=== PATIENT | male | born 1995 | race African-American/Black ===

== ENCOUNTER 2016-09-10 20:43 | Emergency (ER) | payer SELFPAY ==
[~2016-09-10] VITALS: Ht 193 cm; Wt 94.3 kg
[2016-09-10 20:48] VITALS: BP 142/73
[2016-09-10] MEDS ORDERED: MORPHINE SULFATE 4 MG/ML DISP.SYRIN. IV/SQ PRN (21:00)
[2016-09-10] MEDS ORDERED: ONDANSETRON PF 4 MG/2 ML VIAL. IV ONE (21:30)
[2016-09-10] MEDS ORDERED: DIPHTH,PERTUSS(ACELL),TET TOX 0.5 ML DISP.SYRIN. VAX IM ONE (21:30)
[2016-09-10] MEDS ORDERED: LIDOCAINE 1% / SOD BICARB 8.4% 20 ML VIAL. IJ ONE (21:30)
[2016-09-10] MEDS ORDERED: CEFAZOLIN 2GM PREMIX 50 ML IV ONE (22:00)
[2016-09-10] MEDS ORDERED: NAPR250T2 PO (22:26)
[2016-09-10] MEDS ORDERED: CEPH-264 PO (22:26)
--- NOTE | 2016-09-10 23:44 | ED.ADGEN ---
Past Medical History Past Medical History: No Pertinent History Past Surgical History: No Surgical History Alcohol Use: Rarely Drug Use: None Adult General Chief Complaint Chief Complaint: FINGER INJURY HPI HPI Patient is a 21 year old man, with no significant past history, who presents to the emergency department with a complaint of pain in the left fifth digit. Patient states that he was playing basketball, he jumped up to hit a ball, and fell, striking his finger against the pavement. This happened about an half an hour prior to arrival in the ED. Patient states that he had previously injured that finger, and that it was "crooked and S shaped", prior to this injury. Finger is noted have an obvious deformity, patient has a laceration just proximal to the PIP joint, concerning for a possible open fracture. He states that he did not note any bone sticking out of the skin at that time. He is complaining of pain in the finger, and in the blade of the hand, denies any other injuries or complaints. He hasn't taken any medication prior to coming to the ED. He is uncertain when he last received a tetanus vaccination. Review of Systems Review of Systems Constitutional: Denies fever or chills. [] Eyes: Denies change in visual acuity. [] HENT: Denies nasal congestion or sore throat. [] Respiratory: Denies cough or shortness of breath. [] Cardiovascular: Denies chest pain or edema. [] GI: Denies abdominal pain, nausea, vomiting, bloody stools or diarrhea. [] : Denies dysuria. [] Musculoskeletal: Denies back pain, pain in the left fifth digit. Integument: Denies rash. [] Neurologic: Denies headache, focal weakness or sensory changes. [] Endocrine: Denies polyuria or polydipsia. [] Lymphatic: Denies swollen glands. [] Psychiatric: Denies depression or anxiety. [] Current Medications Current Medications Current Medications Medications (Trade) Dose Ordered Sig/Yari Start Time Stop Time Status Last Admin Dose Admin Cefazolin Sodium/ Dextrose (Ancef 2gm Premix) 50 ml @ 100 mls/hr 1X ONCE 09/10/16 22:00 09/10/16 22:29 DC 09/10/16 22:19 100 MLS/HR Diphtheria/ Tetanus/Acell Pertussis (Boostrix) 0.5 ml ONCE ONCE 09/10/16 21:30 09/10/16 21:31 DC 09/10/16 21:20 0.5 ML Lidocaine/Sodium Bicarbonate 20 ml 20 ml 1X ONCE 09/10/16 21:30 09/10/16 21:31 DC 09/10/16 21:19 20 ML Morphine Sulfate 4 mg PRN Q15MIN PRN 09/10/16 21:00 09/10/16 22:59 DC 09/10/16 21:20 4 MG Ondansetron HCl (Zofran) 4 mg 1X ONCE 09/10/16 21:30 09/10/16 21:31 DC 09/10/16 21:18 4 MG Allergies Allergies Allergies Coded Allergies Type Severity Reaction Last Updated Verified No Known Drug Allergies 09/10/16 No Physical Exam Physical Exam Constitutional: Well developed, well nourished, no acute distress, non-toxic appearance. [] HENT: Normocephalic, atraumatic, bilateral external ears normal, oropharynx moist, no oral exudates, nose normal. [] Eyes: PERRLA, EOMI, conjunctiva normal, no discharge. [] Neck: Normal range of motion, no tenderness, supple, no stridor. [] Cardiovascular:Heart rate regular rhythm, no murmur, S1, S2, rubs or gallops. [] Lungs & Thorax: Bilateral breath sounds clear to auscultation, no wheezing, rhonchi, rales. No chest tenderness or crepitus. [] Abdomen: Bowel sounds normal, soft, no tenderness, no masses, no pulsatile masses. [] Skin: Warm, dry, no erythema, no rash. [] Back: No tenderness, no CVA tenderness. [] Extremities: Patient with deformity of the PIP joint of the left fifth digit, with laceration that is hemostatic approximately 0.25 cm in length just proximal on the lateral aspect of the PIP joint. No other injuries identified, patient with full range of motion and cardinal motions intact aside from this joint. There is no fluid leakage. Neurologic: Alert and oriented X 3, normal motor function, normal sensory function, no focal deficits noted. [] Psychologic: Affect normal, judgement normal, mood normal. [] Current Patient Data Vital Signs Vital Signs Date Time Temp Pulse Resp B/P Pulse Ox O2 Delivery O2 Flow Rate FiO2 09/10/16 21:20 16 98 Room Air 09/10/16 21:19 62 131/75 09/10/16 20:48 97.7 97.7 EKG EKG Not indicated. [] Radiology/Procedures Radiology/Procedures Left hand and finger x-rays: 6 views: Patient with dislocation of the PIP joint , no evidence of fracture, soft tissue swelling noted. No fluid collection. As interpreted by me. Left finger x-ray: Three-view: Realignment of the previously dislocated fifth digit of the left hand. As interpreted by me. Course & Med Decision Making Course & Med Decision Making Pertinent Labs and Imaging studies reviewed. (See chart for details) Examination of finger reveals a possible open fracture/dislocation. Patient agreeable to receiving x-rays, pain medication the ED, and a tetanus booster. X- rays reveal dislocation at the PIP joint of the left fifth digit. No evidence of fracture identified. Finger is reduced without complication in the emergency department, copious irrigation of the laceration was performed, no indication for suture closure. Patient continues to have some deformity of the finger, is appearance of a callus formation from previous injury as stated. However, patient's range of motion function is at baseline, he states he was limited previously from prior injury. Injury dressed with Vaseline gauze, and federico taped to the fourth digit. Repeat x-rays revealed appropriate reduction. Patient received Ancef IV in the emergency department, due to open dislocation. No evidence of fluid leaking from joint space or other compromising her concerning findings. As stated patient is back to his baseline range of motion. Findings as above were discussed with Dr. Biggs orthopedics. He recommended continuing Keflex at this time, patient follow-up with him in the office, contact the office tomorrow to schedule a prompt appointment. I discussed this with patient, he is in agreement with this plan, given prescription for Keflex, naproxen, contact information for , clear and detailed return instructions which she voiced understanding and agreement. Patient discharged home in stable condition along with dressing supplies, and plan as above. Dragon Disclaimer Dragon Disclaimer This electronic medical record was generated, in whole or in part, using a voice recognition dictation system. Departure Impression: Primary Impression: Open finger dislocation Disposition: HOME, SELF-CARE Condition: IMPROVED Scripts Cephalexin (Keflex)500 Mg [id number] Mg PO QID #40 CAP Prov:STEPH BAKER DO 09/10/16 Naproxen 250 Mg [id number] Mg PO BID PRN PAIN #10 Prov:STEPH BAKER DO 09/10/16 STEPH BAKER DO Sep 10, 2016 23:44
--- NOTE | 2016-09-11 07:56 | RAD ---
Left hand, 3 views, 09/10/2016, 9:12 PM: History: Injury The little finger is dislocated posterolaterally at the PIP joint level. No fracture is identified. Left Little finger, 3 views, 09/10/2016, 9:13 PM: Cone-down views of the little finger again demonstrate posterolateral dislocation at the PIP joint. IMPRESSION: Left little finger dislocation.
--- NOTE | 2016-09-11 07:57 | RAD ---
Left little finger, 3 views, 09/10/2016, 10:01 PM: History: Postreduction evaluation Comparison is made to a study of earlier the same day. The dislocation at the PIP joint has been reduced. Alignment is now anatomic. No definite fracture is seen. IMPRESSION: Satisfactory reduction of the left little finger dislocation.
--- NOTE | 2016-09-11 13:43 | RAD ---
Left hand, 3 views, 09/10/2016, 9:12 PM: History: Injury The little finger is dislocated posterolaterally at the PIP joint level. No fracture is identified. Left Little finger, 3 views, 09/10/2016, 9:13 PM: Cone-down views of the little finger again demonstrate posterolateral dislocation at the PIP joint. IMPRESSION: Left little finger dislocation. DICTATED and SIGNED BY: LEONIDAS TRINIDAD MD DATE: 09/11/16 0750 MTDD
== END 2016-09-10 22:59 | disposition home or self-care (01) ==
LOC: ER 20:43
DX: S63.287A Dislocation of proximal interphalangeal joint of left little finger, initial encounter (principal); W01.198A Fall on same level from slipping, tripping and stumbling with subsequent striking against other object, initial encounter; Y93.67 Activity, basketball; Y92.310 Basketball court as the place of occurrence of the external cause; Y99.8 Other external cause status
CPT/HCPCS: 26770; 73130; 73140; 90471; 90715; 96365; 96375; 99284; J0690; J2270; J2405